=== PATIENT | female | born 1945 | race Caucasian/White ===

== ENCOUNTER 2016-07-06 08:04 | Emergency (ER) | payer OTHER, MEDICARE ==
[~2016-07-06] VITALS: Ht 160 cm; Wt 86.2 kg
[~2016-07-06 08:04] MED LIST: ALBUTEROL0.09 MG/A1 INH; CALTRATE 600 +1 TAB PO; LOVENOX 10100 MG/1 M SC; LOVENOX 3030 MG/0.1 SC; LOVENOX 4040 MG/0.4 SC; VERAPAMIL HCL40 M1 PO; VITAMIN D32000 I1 PO; VITAMIN D35000 IU PO
--- NOTE | 2016-07-06 08:09 | ED GENERAL ADULT ---
History of Present Illness General Chief Complaint: Dizziness Stated Complaint: BIBA DIZZINESS Source: patient Exam Limitations: no limitations Vital Signs & Intake/Output Vital Signs & Intake/Output Vital Signs Date Time Temp Pulse Resp B/P Pulse O2 O2 Flow FiO2 Ox Delivery Rate 07/06 1513 71 168/80 07/06 1305 170/88 07/06 1205 97.1 72 18 170/88 07/06 1118 170/88 07/06 1025 97.1 72 18 185/78 96 07/06 0828 97 Room Air 07/06 0816 97.1 81 18 178/100 98 Allergies Coded Allergies: amlodipine (Severe, DIZZINESS 07/06/16) furosemide (Severe, DEHYDRATION AND DRY EYE 07/06/16) gentamicin (Severe, HEARING LOSS, RESTLESS LEGS AND BODY 07/06/16) ketorolac (From TORADOL) (Severe, INSTRUCTED BY ORTHOPEDIC MD NOT 07/06/16) lisinopril (Severe, NAUSEA, HEADACHE 07/06/16) vancomycin (Severe, ITCHING, RASH, GI UPSET 07/06/16) Penicillins (ABD PAIN 07/06/16) Sulfa (Sulfonamide Antibiotics) (UNKNOWN 07/06/16) amoxapine (ABD PAIN 07/06/16) amoxicillin (From AUGMENTIN) (UNKNOWN 07/06/16) ampicillin (ABD PAIN 07/06/16) aspirin (INCREASED ASTHMA ATTACKS 07/06/16) betamethasone (SEVERE ITCHING 07/06/16) ciprofloxacin (From CIPRO) (BLURRED VISION 07/06/16) clavulanic acid (From AUGMENTIN) (UNKNOWN 07/06/16) doxycycline (RED SORES 07/06/16) erythromycin base (N/V 07/06/16) esomeprazole (HEADACHE 07/06/16) hepatitis B virus vaccine (UNKNOWN 07/06/16) hydrocodone (DIAPHORESIS 07/06/16) lansoprazole (UNKNOWN 07/06/16) lorazepam (HALLUCINATING 07/06/16) losartan (BLURRED VISION 07/06/16) meloxicam (DIFFICULTY SWALLOWING 07/06/16) meperidine (UNKNOWN 07/06/16) metoprolol (BLURRED VISION 07/06/16) metronidazole (SOB 07/06/16) morphine (BEHAVIORAL CHANGES 07/06/16) olmesartan (From BENICAR) (HEAD AND HAND TREMORS 07/06/16) oxycodone (UNKNOWN 07/06/16) phenylephrine (HIVES 07/06/16) prednisone (INCREASED DEPRESSION 07/06/16) propoxyphene (UNKNOWN 07/06/16) spironolactone (NAUSEA 07/06/16) succinylcholine (UNKNOWN 07/06/16) tetracaine (UNKNOWN 07/06/16) tropicamide (UNKNOWN 07/06/16) warfarin (IMPAIRED THINKING 07/06/16) nebivolol (Severe, IRREGUALER PULSE 07/06/16) Uncoded Allergies: PROBIOTIC (Severe, THROAT SWELLS 07/06/16) Reconcile Medications Albuterol Sulfate (Albuterol Sulfate Hfa) 0.09 MG/Actuation ADELA 2 PUFF INH Q4- 6 PRN PRN SHORTNESS OF BREATH (Reported) 90 MCG PER PUFF Calcium Carbonate/Vitamin D (Caltrate) 600 MG/200 IU TAB SUPPLEMENT (Reported) CHOLECALCIFEROL (VITAMIN D3) (Vitamin D-3) 2,000 IU SGL 1 TAB PO D SUPPLEMENT (Reported) Hydralazine HCl 10 MG TABLET 1 TAB PO BID HEART (Reported) Verapamil Hydrochloride (Verapamil HCl) 40 MG TABLET 0.5 TAB PO TID BP ( Reported) Warfarin Sodium 4 MG TABLET 1 TAB PO 1700 BLOOD THINNER (Reported) Triage Nurses Notes Reviewed? yes Onset: Abrupt Duration: hour(s): Timing: recent history HPI: 07/06/16 9 AM 71-year-old female presents to the emergency department with multiple complaints. The patient states that she's had severe dizziness, nausea and a left-sided headache. This began last night. She says she uses CPAP for sleep apnea. She also admits to some minimal difficulty breathing but this is usual for her. No chest pain. The onset of the symptoms were abrupt, the duration has been the last several hours, the severity was significant as her symptoms required her to come to the emergency department for care. She has a past medical history of sleep apnea, DVT, and hypertension. She has a past surgical history for appendectomy, hip replacement, total abdominal hysterectomy. She said 2 weeks ago she also had some diarrhea. This is since resolved. She also has a history of PVCs. Dr. Fagan as her academic specialist and Chuy Tellez MD as her primary care doctor Past History Medical History Any Pertinent Medical History? see below for history Neurological: restless leg syndrome EENT: NONE Cardiovascular: hypertension Respiratory: asthma, obstructive sleep apnea Gastrointestinal: NONE Hepatic: NONE Renal: NONE Musculoskeletal: fibromyalgia, OSTEOARTHRITIS b/l hip replacement Psychiatric: NONE Endocrine: NONE Blood Disorders: DVT, RAYNAUDS Cancer(s): NONE TALENT ACQUISITION SOURCER/Reproductive: NONE Surgical History Surgical History: non-contributory Psychosocial History Who do you live with Patient/Self Services at Home None What is your primary language Belgian Family History Family History, If Any: FATHER FH: hypertension BROTHER FH: esophageal cancer Hx Contributory? No Review of Systems Review of Systems Constitutional: Denies: fever. EENTM: Denies: visual changes. Respiratory: Reports: short of breath. Cardiovascular: Denies: chest pain. GI: Denies: abdominal pain. Genitourinary: Reports: no symptoms. Musculoskeletal: Reports: no symptoms. Skin: Denies: rash. Neurological/Psychological: Reports: headache. Hematologic/Endocrine: Reports: bruising (LEFT LEG FROM 1 WEEK AGO). Physical Exam Physical Exam General Appearance: alert, awake, anxious, mild distress Head: atraumatic, normal appearance Eyes: Bilateral: normal appearance, PERRL, EOMI (minimal horizontal nystagmus). Ears, Nose, Throat: normal pharynx, hearing grossly normal, TMs normal Neck: normal inspection, supple, full range of motion Respiratory: normal breath sounds, chest non-tender, no respiratory distress Cardiovascular: regular rate/rhythm Peripheral Pulses: 4+ radial (R), 4+ radial (L) Gastrointestinal: soft, non-tender Back: normal range of motion Extremities: normal inspection, normal range of motion, no edema Neurologic/Psych: no motor/sensory deficits, awake, alert, oriented x 3 Skin: intact, normal color, warm/dry Core Measures ACS in differential dx? No CVA/TIA Diagnosis: No Severe Sepsis Present: No Septic Shock Present: No Progress Differential Diagnoses I considered the following diagnoses in my evaluation of the patient: [Giant cell arteritis, CVA, intracranial bleed,] Acute coronary syndrome, peripheral vertigo, vestibular neuronitis, viral labyrinthitis, Mnire's disease Plan of Care: Orders Procedure Date/time Status Heart Healthy Diet 07/06 D Active URINALYSIS 07/06 0952 Complete EKG 07/06 0833 Active TROPONIN LEVEL 07/06 926 Complete PROTHROMBIN TIME 07/06 926 Complete FOLIC ACID 07/06 926 Complete WESTERGREN SED RATE 07/06 926 Complete COMPREHENSIVE METABOLIC PANEL 07/06 926 Complete CBC WITHOUT DIFFERENTIAL 07/06 926 Complete Laboratory Tests 07/06/16 0953: Urine Color YEL, Urine Clarity CLEAR, Urine pH 7.0, Ur Specific Points 1.010, Urine Protein NEG, Urine Ketones NEG, Urine Nitrite NEG, Urine Bilirubin NEG, Urine Urobilinogen 0.2, Ur Leukocyte Esterase NEG, Ur Microscopic SEDIMENT EXAMINED, Urine RBC RARE, Urine WBC RARE, Ur Epithelial Cells RARE, Urine Mucus RARE, Urine Hemoglobin TRACE-INTACT, Urine Glucose NEG 07/06/16 0950: Anion Gap 9, Estimated GFR > 60, BUN/Creatinine Ratio 20.0, Glucose 106 H, Calcium 9.1, Total Bilirubin 0.6, AST 23, ALT 32, Alkaline Phosphatase 67, Troponin I 0.02, Total Protein 6.7, Albumin 3.8, Globulin 2.9, Albumin/Globulin Ratio 1.3, Folate > 20.0 H, PT 21.3 H, INR 2.04 H, CBC w Diff NO MAN DIFF REQ , RBC 4.76, MCV 85.8, MCH 28.8, RDW 14.2, MPV 8.3, Gran % 80.0 H, Lymphocytes % 12.1 L, Monocytes % 7.3, Eosinophils % 0.2, Basophils % 0.4, Absolute Granulocytes 5.0, Absolute Lymphocytes 0.8 L, Absolute Monocytes 0.5, Absolute Eosinophils 0, Absolute Basophils 0, PUBS MCHC 33.6, ESR Westergren 12 Initial ED EKG: NSR, RBBB Prior EKG: unchanged Departure Departure Disposition: STILL A PATIENT Condition: Stable Clinical Impression Primary Impression: Dizziness Referrals: CARLA ELLIS,CHUY Constantino (PCP/Family) Departure Forms: Customer Survey General Discharge Information Comments 07/06/16 The patient was asymptomatic in the emergency department. She was instructed to increase her hydralazine. Take low dose [id number] as needed for vertigo Follow-up with her doctor this week. Critical Care Note Critical Care Note Critical Care Time: non-applicable
[2016-07-06 10:01] LABS: ABSOLUTE BASOPHIL COUNT 0 /CUMM (0.0-0.2); ABSOLUTE EOSINOPHIL COUNT 0 /CUMM (0.0-0.7); ABSOLUTE LYMPH COUNT 0.8 /CUMM (1.2-3.4); ABSOLUTE MONOCYTE COUNT 0.5 /CUMM (0.10-0.60); BASOPHIL % 0.4 % (0.0-2.0); EOSINOPHIL % 0.2 % (0-5); HEMATOCRIT 40.8 % (37-47); MEAN CORPUSCULAR HGB 28.8 PG (27.0-31.0); MEAN CORPUSCULAR HGB CONC 33.6 G/DL (33.0-37.0); MEAN CORPUSCULAR VOLUME 85.8 FL (81.0-99.0); MEAN PLATELET VOLUME 8.3 FL (7.4-10.4); PLATELET COUNT 183 /CUMM (130-400); RBC DISTRIBUTION WIDTH 14.2 % (11.5-14.5); RED BLOOD CELL CT 4.76 /CUMM (4.20-5.40); WHITE BLOOD CELL COUNT 6.2 /CUMM (4.8-10.8)
[2016-07-06 10:04] LABS: PT 21.3 SEC (9.4-12.5)
[2016-07-06] MEDS ORDERED: HYDRALAZINE HCL10 M1 PO (10:05)
[2016-07-06] MEDS ORDERED: WARFARIN SODIUM4 M1 PO (10:06)
--- NOTE | 2016-07-06 11:27 | CT SCAN REPORT ---
EXAMINATION: CT HEAD WITHOUT CONTRAST CLINICAL INFORMATION: Headache and dizziness on Coumadin. COMPARISON: 08/28/2014. TECHNIQUE: Contiguous axial imaging was performed from the skull base to vertex without intravenous administration of contrast. DLP: 601 mGy-cm. FINDINGS: There is no evidence of acute intracranial hemorrhage or territorial infarction. No abnormal mass effect or midline shift is seen. Arechiga to white matter differentiation is well preserved. No extra-axial fluid collections are identified. The ventricles are normal in size. There is no abnormal attenuation within the brain parenchyma. The osseous structures and soft tissues are normal. The mastoid air cells and visualized portions of the paranasal sinuses are well aerated. IMPRESSION: No acute intracranial pathology.
[2016-07-06 15:13] VITALS: BP 168/80
== END 2016-07-06 15:14 ==
LOC: ERH 08:04
PROVIDERS: Emergency Medicine
DX: R42 Dizziness and giddiness (principal); I10 Essential (primary) hypertension; Z86.718 Personal history of other venous thrombosis and embolism; Z79.01 Long term (current) use of anticoagulants
CPT/HCPCS: 81001; 93005; 93010; 96360; J7040